=== PATIENT | male | born 1995 | race Hispanic/Latino ===

== ENCOUNTER 2023-12-26 16:05 | Emergency (ER) | payer SELFPAY, OTHER ==
[~2023-12-26 16:05] MED LIST: Iopamidol 370 76% 100 ML VIAL ONE
[2023-12-26] MEDS ORDERED: Morphine 4 MG/ML VIAL ONE (16:36)
[2023-12-26] MEDS ORDERED: Ketorolac Tromethamine 30 MG (1 mL) VIAL ONE (16:36)
== END 2023-12-26 18:12 | disposition home or self-care (01) ==
LOC: ERS 16:05
DX: S20.211A Contusion of right front wall of thorax, initial encounter (principal); S70.01XA Contusion of right hip, initial encounter; W17.89XA Other fall from one level to another, initial encounter
CPT/HCPCS: 71045; 71260; 72170; 74177; 96374; 96375; J1885; J2270; Q9967